=== PATIENT | female | born 1940 | race Caucasian/White ===

== ENCOUNTER 2018-02-28 12:06 | Outpatient (CLI) ==
[2018-01-27 04:20] VITALS: BMI 35.1
--- NOTE | 2018-02-28 22:29 | MRI ---
EXAM: Lumbar spine MRI without contrast. HISTORY: Right sciatica. COMPARISON: Lumbar spine CT scan 01/27/2018. TECHNIQUE: Multiplanar, multisequence MR images were acquired of the lumbar spine without contrast. FINDINGS: Conus medullaris ends at T12-L1 and has normal signal intensity. There is minor thoracolu mbar dextroscoliosis centered at L2-3 and there is a mild to moderate chronic right anterior wedge co mpression deformity of L3 with irregular concavity of the superior endplate and 1.5 mm retropulsion o f the left posterior superior endplate and L2-3 intervertebral disc. Intrinsic bone marrow signal is normal. A small benign intraosseous hemangioma is present at L4. Focal modic type 2 endplate gore es are present posteriorly at L2-3 and L4-5. The partially visualized liver, spleen, adrenal glands a nd kidneys are unremarkable. A small splenule is present inferior medial to the spleen. L1-2: There is a small posterior disc bulge and mild bilateral hypertrophic facet arthropathy and li gamentum flavum hypertrophy. There is no central canal stenosis or foraminal stenosis. L2-3: There is desiccation of the lumbar intervertebral discs from L2-3 to L4-5 and mild disc space narrowing at L4-5. Small ventral and lateral osteophytes are present in the lumbar spine. L3-4: There is a mild diffuse disc bulge that is asymmetric posteriorly and to the left and mild to moderate left and mild right hypertrophic facet arthropathy and ligamentum flavum hypertrophy. This produces triangulation of the thecal sac and mild to moderate left neural foraminal stenosis. L4-5: There is a mild disc bulge and a moderate broad-based central disc protrusion that effaces the ventral thecal sac and contacts the anteromedial L5 nerve roots bilaterally, greater on the right. B ilateral facet arthropathy and ligamentum flavum hypertrophy is present and there is mild bilateral f oraminal stenosis. L5-S1: There is a minor disc bulge with small left far lateral endplate osteophytes that may encroac h on the left L5 nerve exiting the neural foramen. Mild right and mild-moderate left hypertrophic fa cet arthropathy is present. There is no central canal stenosis or foraminal stenosis. IMPRESSION: 1. Mild to moderate chronic right anterior wedge compression deformity L3. 2. No change mild lumbar degenerative spondylosis and facet arthropathy compared to the prior CT sca n. 3. Moderate central disc protrusion L4-5 that contacts the anteromedial L5 nerve roots bilaterally, greater on the right. 4. Mild to moderate left L3-4 neural foraminal stenosis.
== END 2018-02-28 12:07 | disposition home or self-care (01) ==
LOC: RAD 12:06
PROVIDERS: ATTEND Family Medicine
DX: M54.31 Sciatica, right side (principal)

== ENCOUNTER 2018-03-11 13:48 | Outpatient (RCR) ==
[2018-01-27 04:20] VITALS: BMI 35.1
--- NOTE | 2018-03-11 15:47 | RS.OPPTEV2 ---
Date of Note: 03/11/18 Visit #: 1 Date of Evaluation: 03/11/18 Payer Source: MEDICARE Date of Onset/Injury/Change in Status: 01/25/18 Surgery Performed?: No Treatment Diagnosis: displacement lumbar disc w radiculopathy, lumbar radiculopathy, pain B hips History of Condition/Mechanism of Injury:: pt states she does not know what caused her pain. 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 pt states she has been unable to sleep in her bed since onset of back pain. She reports sharp pain and occasional shooting pain into RLE. Treatment Side (optional): Right *Precautions: limit lifting, twisting, bending. Medical History Medical History: Arthritis Medical History Comments:: hypothyroid Surgical History: Cholecystectomy Smoking Status: Former smoker Diagnostic Testing/Imaging:: lumbar spine MRI: mild to mod chronic R ant wedge compression deformity L3, no change mild lumbar degenerative spondylosis and facet arthropathy, mod central disc protrusion L4-5 that contacts the anteromedial L5 nerve roots B greater on R. mild to mod L L3-4 neural foraminal stenosis. 02/28/18 Pain Assessment - Pain Description Pain Location: lumbar/ R SI joint Pain Description: Sharp Pain Description: shooting into R LE Current Pain Intensity: 7/10 Functional Outcome Measure Oswestry LBP: 33 (66%) - G Codes & Severity Modifier G Codes & Modifier: mobility: walking and moving around: current CL. mobility: walking and moving around: goal CJ Source of G Code score: oswestry low back pain scale Observation - Observation Inspection: R LE longer than LLE with R ASIS lower than L Posture: Forward Head, Rounded Shoulders, Increased Thoracic Kyphosis, Decreased Lumbar Lordosis Handedness: Right Gait - Gait Pattern General Gait Pattern Observation: Antalgic Gait Gait Comments: pt amb with antalgic gait with decreased step length and flexed posture General Range of Motion: BUE WFL's. BLE WFL's Muscle Strength: BUE 4+/5,. RLE hip flex 3/5 with significant pain, knee flex/ ext 4/5, ankle Df/PF 4/5. LLE hip flex 4-/5, knee flex/ext 4+/5, ankle DF/PF 4+ /5 - ROM Lumbar Flexion: Hand reach to Mid-Thighs Sidebending to Left: Reach to Lateral Joint Line Sidebending to Right: Reach to Lateral Joint Line Lumbar Spine ROM Limitations: Soft Tissue Tightness, Muscle Weakness, Pain - Special Tests SLR Test: Positive Right Seated Dural Stretch Test: Positive Right SI Joint Compression: Positive Palpation Palpation Findings: Tenderness, Trigger Point, Muscle Guarding Comments:: pt with tenderness at R SI with muscle guarding and trigger points noted. Sensation - Sensation Right Upper Extremity: Intact/Normal Left Upper Extremity: Intact/Normal Right Lower Extremity: Impaired (tingling and pain into RLE) Left Lower Extremity: Intact/Normal Balance - Sitting Balance Static Sitting Balance: Normal Dynamic Sitting Balance: Normal - Standing Balance Static Standing Balance: Good Dynamic Standing Balance: Good - Treatment Modality: Electrical Stim Unattended Parameters/Method Applied: IFC x 20 mins at 7ma Treatment Area: R lumbosacral area Patient Position: Sitting - Heat/Cryotherapy Treatment: Cryotherapy Comments:: Lumbosacral area Interventions - Exercise/Activities/Manual Therapy Exercises/Activities: muscle energy with resisted R hip flex and L hip ext. isometric hip add, single knee to chest stretch. Manual Therapy: n/a HOME EXERCISE PROGRAM: pt given written HEP including muscle energy, pelvic tilts, isometric hip add, single knee to chest. - Charges Timed Code Treatment Minutes: 43 Total Treatment Time: 61 Procedures billed for this date of service:: eval low, estim unattended, cold pack EVALUATION COMPLEXITY LEVEL EVALUATION COMPLEXITY LEVEL: HISTORY: Low (pain, OA, ), EXAM OF BODY SYSTEMS: Medium (pain, strength, posture, ROM), CLINICAL PRESENTATION: Medium (evolving) , CLINICAL DECISION MAKING: Medium Assessment Assessment: pt presents with pain in R SI joint radiating into RLE, pt also with lumbar disc disease. pt with RLE longer than LLE. (After muscle energy leg lengths equal) pt also with tenderness, trigger points noted in R SI Patient Education: Home Exercise Program, Education of Plan of Care Rehab Potential: Good Short Term Goals Goal #1: pt rate pain < 6/10. Goal to be met by: 07/20/18 Goal #2: pt with no reports of radicular pain in RLE Goal to be met by: 04/01/18 Goal #3: pt with equal leg length BLE Goal to be met by: 04/01/18 Nursing Home Goals Goal #1: pt rate pain <4/10 Goal to be met by: 04/22/18 Goal #2: pt report ability to perform normal activities with decreased pain. Goal to be met by: 04/22/18 Goal #3: pt independent with HEP Goal to be met by: 04/22/18 Plan - Treatment to be Provided Procedures: Therapeutic Exercises, Therapeutic Activity, Manual Therapy, Massage , Patient Education Modalities: Electrical Stimulation, Ultrasound/Phonophoresis, Cryotherapy, Hot Packs - Treatment Plan Frequency: 2-3x week Duration: 6 weeks ORDER # VISITS AND/OR THROUGH DATE: 04/22/18 - Treatment Code (1) Sacroiliac dysfunction Code(s): M53.3 - SACROCOCCYGEAL DISORDERS, NOT ELSEWHERE CLASSIFIED (2) Lumbar radiculopathy Code(s): M54.16 - RADICULOPATHY, LUMBAR REGION (3) Displacement of lumbar disc with radiculopathy Code(s): M51.16 - INTERVERTEBRAL DISC DISORDERS W RADICULOPATHY, LUMBAR REGION
== END 2018-03-12 23:59 ==
PROVIDERS: ATTEND Neurological Surgery
DX: M51.16 Intervertebral disc disorders with radiculopathy, lumbar region (principal); M54.16 Radiculopathy, lumbar region; M25.551 Pain in right hip; M25.552 Pain in left hip

== ENCOUNTER 2018-03-24 10:00 | Outpatient (RCR) ==
[2018-01-27 04:20] VITALS: BMI 35.1
--- NOTE | 2018-03-14 10:10 | RS.OPPTDN ---
Subjective Date of Note: 03/14/18 Visit #: 2 Date of Evaluation: 03/11/18 Payer Source: MEDICARE Treatment Diagnosis: displacement lumbar disc w radiculopathy, lumbar radiculopathy, pain B hips Current Subjective/complaints:: pt states she was able to sleep in bed a few hours last night. Reports she did a little better at work with less pain, however reports is hurting more today. *Precautions: limit lifting, twisting, bending. Pain Assessment - Pain Description Pain Location: R lumbosacral area Pain Description: Sharp, Aching Current Pain Intensity: 7/10 Worst Pain Intensity: 8-9/10 Other Comments regarding Pain:: Reports pain continues to radiate into RLE. After ex and estim pt reports pain 2/10 - Treatment Modality: Electrical Stim Unattended Parameters/Method Applied: IFC x 20 mins at 9ma Treatment Area: R lumbosacral area Patient Position: Sitting - Heat/Cryotherapy Treatment: Hot Pack (x 10 mins at beginning of treatment), Cryotherapy Comments:: x 20mins at R lumbosacral area with Estim Interventions - Exercise/Activities/Manual Therapy Exercises/Activities: pt with muscle energy with resisted R hip flex, and L hip ext held x 5 secs x 4 reps. pt also performed isometric hip add, resisted hip abd with green tband x 2 sets of 5 reps with verbal cues as well as rest periods. Manual Therapy: n/a HOME EXERCISE PROGRAM: pt given written HEP including muscle energy, pelvic tilts, isometric hip add, single knee to chest. Added resisted hip abd with green tband. - Charges Timed Code Treatment Minutes: 39 Total Treatment Time: 61 Procedures billed for this date of service:: exercise x 2, estim unattended and cold pack Assessment: pt continues with significant pain in R SI area radiating into RLE. Upon arrival for PT, pt RLE longer than LLE, after muscle energy leg lengths equal. pt unable to tolerate increased ex due to pain. pt did report decreased pain after estim/ice. Patient Education: Home Exercise Program, Education of Plan of Care Patient demonstrates compliance with HEP?: Yes Short Term Goals Goal #1: pt rate pain < 6/10. Goal to be met by: 04/01/18 Progress towards Goal:: Progressing Comments:: pain decreased to 2/10 Goal #2: pt with no reports of radicular pain in RLE Goal to be met by: 04/01/18 Progress towards Goal:: No Change Goal #3: pt with equal leg length BLE Goal to be met by: 04/01/18 Comments:: RLE longer than LLE, equal after muscle energy Alf Goals Goal #1: pt rate pain <4/10 Goal to be met by: 04/22/18 Goal #2: pt report ability to perform normal activities with decreased pain. Goal to be met by: 04/22/18 Progress towards goal: Progressing Goal #3: pt independent with HEP Goal to be met by: 04/22/18 Progress towards goal: Progressing Plan PLAN OF CARE EXPIRES ON:: 04/22/18 ORDER # VISITS AND/OR THROUGH DATE: 04/22/18 PLAN: Continue to progress with ex for muscle energy tech, core strengthening, stretching as well as modalities to decrease pain and increase strength.
--- NOTE | 2018-03-17 10:15 | RS.OPPTDN ---
Subjective Date of Note: 03/17/18 Visit #: 2 Date of Evaluation: 03/11/18 Payer Source: MEDICARE Treatment Diagnosis: displacement lumbar disc w radiculopathy, lumbar radiculopathy, pain B hips Current Subjective/complaints:: pt states she was only able to sleep approx 2-3 hours last night due to pain. pt reports she is doing HEP and ice at home. pt states she feels lifting heavy, wet laundry is increasing pain. pt states she has called MD due to out of pain medicine as well as her job states she can do light duty with a note from MD. pt is awaiting call back from MD. *Precautions: limit lifting, twisting, bending. Pain Assessment - Pain Description Pain Location: R SI joint, min radiating into RLE Pain Description: Aching Current Pain Intensity: 5-6 Worst Pain Intensity: 10 Other Comments regarding Pain:: after treatment pt rates pain 0 at rest. - Treatment Modality: Electrical Stim Unattended Parameters/Method Applied: IFC x 20 mins ending at 9ma Treatment Area: R lumbar area Patient Position: Sitting - Heat/Cryotherapy Treatment: Cryotherapy Comments:: R lumbosacral area Interventions - Exercise/Activities/Manual Therapy Exercises/Activities: pt received gentle hamstring stretches BLE, pt performed knee to chest, Prone lying (pt reports decrease in radiating pain in RLE with prone lying.)isometric hip add, resisted hip abd with green t band x2 sets of 5- 10 reps. pt also performed self muscle energy technique in sitting. Manual Therapy: n/a HOME EXERCISE PROGRAM: pt given written HEP including muscle energy, pelvic tilts, isometric hip add, single knee to chest. Added resisted hip abd with green tband. - Objective Findings Observations,measurements,etc.: pt with equal leg length this visit. pt continues to appear slightly shifted when amb and has slight antalgic gait. - Charges Timed Code Treatment Minutes: 41 Total Treatment Time: 62 Procedures billed for this date of service:: exercise x 2, estim and cold pack x 20 mins Assessment: pt with slight decrease in pain in this visit, however pain continues to interrupt sleep. pt with improvement after treatment. Patient Education: Home Exercise Program, Activity Modification, Education of Plan of Care Patient demonstrates compliance with HEP?: Yes Short Term Goals Goal #1: pt rate pain < 6/10. Goal to be met by: 04/01/18 Progress towards Goal:: Progressing Comments:: pain 5-6/10 Goal #2: pt with no reports of radicular pain in RLE Goal to be met by: 04/01/18 Progress towards Goal:: Progressing Comments:: with treatment pain decreased in RLE Goal #3: pt with equal leg length BLE Goal to be met by: 04/01/18 Progress towards Goal:: Met Comments:: equal this date. 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 Goal to be met by: 04/22/18 Progress towards goal: Progressing Goal #3: pt independent with HEP Goal to be met by: 04/22/18 Progress towards goal: Progressing Plan PLAN OF CARE EXPIRES ON:: 04/22/18 ORDER # VISITS AND/OR THROUGH DATE: 04/22/18 PLAN: plan to continue with gentle stretching, core strengthening, prone lying progress to prone on elbows and continue with modalities to decrease pain and inflammation.
--- NOTE | 2018-03-21 13:19 | RS.CSNOTE ---
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 Called and spoke with Mary with Dr. Woodson and she states that they would try to refer pt to pain management, and pt could stop PT if she wanted to or continue. I called and spoke with patient and she stated she would call back and let PT know if she wants to dc or continue after speaking with MD office.
--- NOTE | 2018-03-21 14:56 | RS.OPPTDN ---
Subjective Date of Note: 03/21/18 Visit #: 4 Date of Evaluation: 03/11/18 Payer Source: MEDICARE Treatment Diagnosis: displacement lumbar disc w radiculopathy, lumbar radiculopathy, pain B hips Current Subjective/complaints:: Patient presents to department with reports of continued pain that kept her up most of the night. Reported to PT and she is contacting physicians office. Patient will decide whether or not she will continue PT after she speaks with physicians office. *Precautions: limit lifting, twisting, bending. Pain Assessment - Pain Description Pain Location: lowback, right S-I, and right LE Current Pain Intensity: mod Other Comments regarding Pain:: Patient reports little to no discomfort with walking in department following treatment. - Treatment Modality: US with ES (Comb.) Parameters/Method Applied: [id number] US at 1.5w/cm2 and Estim at 7p.v. to the bilateral lower lumbar paraspinals and right S-I joint area. Patient Position: Right Sidelying Comments: Patient in right side-lying due to pain with left side-lying. - Heat/Cryotherapy Treatment: Cryotherapy ([id number] to lowback and S-I area to end session. Patient in right side-lying. ) Interventions - Exercise/Activities/Manual Therapy Exercises/Activities: Assisted hamstring, SKTC, piriformis, and LTR, bilaterally. Isometric hip add, isometric hip flexion, pelvic tilts. Attempted modified bridge. Isometric hip abduction on right. MET isometric hip extension on right and isometric hip flexion in left. Total minutes of Exercise: 27mins Manual Therapy: n/a HOME EXERCISE PROGRAM: pt given written HEP including muscle energy, pelvic tilts, isometric hip add, single knee to chest. Added resisted hip abd with green tband. - Charges Timed Code Treatment Minutes: 39mins Total Treatment Time: 54mins Procedures billed for this date of service:: EX2, USCOM, CP Assessment: Patient with flair-up of pain that has kept her up at night. PT is contacting physician to report symptoms. Patient may continue treatment if USCOM has helped with pain reduction. Patient Education: Education of diagnosis, Body/Joint mechanics, Home Exercise Program, Activity Modification Patient demonstrates compliance with HEP?: Yes Short Term Goals Goal #1: pt rate pain < 6/10. 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 Goal to be met by: 04/22/18 Progress towards goal: Progressing Goal #3: pt independent with HEP Goal to be met by: 04/22/18 Progress towards goal: Progressing Plan PLAN OF CARE EXPIRES ON:: 04/22/18 ORDER # VISITS AND/OR THROUGH DATE: 04/22/18 PLAN: Will wait for further instruction from physicians office.
--- NOTE | 2018-03-24 12:00 | RS.OPPTDN ---
Subjective Date of Note: 03/24/18 Visit #: 5 Date of Evaluation: 03/11/18 Payer Source: MEDICARE Treatment Diagnosis: displacement lumbar disc w radiculopathy, lumbar radiculopathy, pain B hips Current Subjective/complaints:: Patient reports no change in pain level. States she only gets 2-3 hours of sleep per night. States she spoke with physicians office and she is waiting on a call from Pain Management. Following discussionw ith PT, patient agrees to continue basic HEP and hold therapy at this time. *Precautions: limit lifting, twisting, bending. Pain Assessment - Pain Description Pain Location: lowback and right hip/glut region Current Pain Intensity: average 7/10 Other Comments regarding Pain:: Increases at times and prevent rest Interventions - Exercise/Activities/Manual Therapy Exercises/Activities: Assisted hamstring, SKTC, piriformis, and LTR, bilaterally. Isometric hip add, and pelvic tilts. Patient cannot tolerate MET with isometric hip ext on right. Total minutes of Exercise: 12mins Manual Therapy: n/a HOME EXERCISE PROGRAM: pt given written HEP including muscle energy, pelvic tilts, isometric hip add, single knee to chest. Added resisted hip abd with green tband. - Charges Timed Code Treatment Minutes: 12mins Total Treatment Time: 14mins Procedures billed for this date of service:: EX Assessment: Patient reporting no change in pain level. She has attended consistently and is working on HEP. PT recommends patient to keep in contact with physicians office and hold therapy at this time due to lack of progress. Patient Education: Home Exercise Program Comments: Patient advised to continue basic HEP of HS, piriformis, and gentle SKTC. Also, pelvic tilts and isometric hip add with glut sets. Patient demonstrates compliance with HEP?: Yes Short Term Goals Goal #1: pt rate pain < 6/10. Goal to be met by: 04/01/18 Progress towards Goal:: No Change Goal #2: pt with no reports of radicular pain in RLE Goal to be met by: 04/01/18 Progress towards Goal:: No Change Goal #3: pt with equal leg length BLE Goal to be met by: 04/01/18 Progress towards Goal:: Met Halfway Goals Goal #1: pt rate pain <4/10 Goal to be met by: 04/22/18 Progress towards goal: No Change Comments: Initailly patient reported decreased pain, but now no change Goal #2: pt report ability to perform normal activities with decreased pain. Goal to be met by: 04/22/18 Progress towards goal: Progressing Goal #3: pt independent with HEP Goal to be met by: 04/22/18 Progress towards goal: Met Comments: Independent with basic HEP. Plan PLAN OF CARE EXPIRES ON:: 04/22/18 ORDER # VISITS AND/OR THROUGH DATE: 04/22/18 PLAN: Hold at this time with patient to see physician and Pain Management.
--- NOTE | 2018-04-06 11:45 | RS.OPPTDC ---
Date of Discharge: 03/24/18 Date of Evaluation: 03/11/18 Number of Visits: 5 Treatment Diagnosis: displacement lumbar disc w radiculopathy, lumbar radiculopathy, pain B hips Current Level of Function: pt on hold since 03/24/18, going back to MD. No further orders to continue. pt without improvement with pain or ROM. Current Complaints/Gains: pt reports no improvement. pt states she continues to only get 2-3hrs of sleep due to pain. Pain average 7/10 or higher at times. Pain Assessment - Pain Description Pain Location: lumbar pain Current Pain Intensity: 7/10 Worst Pain Intensity: 10/10 Functional Outcome Measure - G Codes & Severity Modifier G Codes & Modifier: mobility: walking and moving aroung current CL. mobility: walking and moving around goal CJ Source of G Code score: pt performance Observation - Observation Inspection: pt continues with flexed posture. Posture: Rounded Shoulders, Increased Thoracic Kyphosis, Decreased Lumbar Lordosis Handedness: Right Gait - Gait Pattern General Gait Pattern Observation: No Deviations/Normal Gait Comments: pt amb with decreased step length and flexed posture due to lumbar pain. General Range of Motion: BUE WFL's. BLE WFL's Muscle Strength: not MMT due to pain Interventions - Exercise/Activities/Manual Therapy Exercises/Activities: n/a Manual Therapy: n/a HOME EXERCISE PROGRAM: pt given written HEP including muscle energy, pelvic tilts, isometric hip add, single knee to chest. Added resisted hip abd with green tband. - Charges Timed Code Treatment Minutes: n/a Total Treatment Time: n/a Procedures billed for this date of service:: n/a Assessment Assessment: pt with no improvement with pain. Pain continues to limit function as well as sleep. pt sent back to MD due to lack or progress. Patient Education: Home Exercise Program, Education of Plan of Care Rehab Potential: Good Short Term Goals Goal #1: pt rate pain < 6/10. Goal to be met by: 04/01/18 Progress towards Goal:: No Change Goal #2: pt with no reports of radicular pain in RLE Goal to be met by: 04/01/18 Progress towards Goal:: No Change Goal #3: pt with equal leg length BLE Goal to be met by: 04/01/18 Progress towards Goal:: Met [facility] Goals Goal #1: pt rate pain <4/10 Goal to be met by: 04/22/18 Progress towards goal: No Change Goal #2: pt report ability to perform normal activities with decreased pain. Goal to be met by: 04/22/18 Progress towards goal: Progressing Goal #3: pt independent with HEP Goal to be met by: 04/22/18 Progress towards goal: Met Plan Reason for Discharge:: Lack of Progress
== END 2018-04-12 23:59 ==
PROVIDERS: ATTEND Neurological Surgery
DX: M51.16 Intervertebral disc disorders with radiculopathy, lumbar region (principal); M54.16 Radiculopathy, lumbar region; M25.551 Pain in right hip; M25.552 Pain in left hip; M53.3 Sacrococcygeal disorders, not elsewhere classified